=== PATIENT | male | born 1985 | race Caucasian/White ===

== ENCOUNTER 2022-12-24 21:14 | Emergency (ER) | payer OTHER, SELFPAY ==
--- NOTE | ~2022-12-24 | XR_ITS ---
EXAMINATION: XR shoulder RT min 2V INDICATION: Right shoulder pain TECHNIQUE: Four views of the right shoulder are submitted. COMPARISON: 04/22/2010 FINDINGS: Normal alignment. No fracture. There is moderate glenohumeral joint osteoarthritis. The acr omioclavicular joint is unremarkable. Soft tissues are unremarkable. IMPRESSION: 1. Osteoarthritis without acute osseous abnormality. Reviewed, dictated and finalized at location A.
--- NOTE | ~2022-12-24 | CT_ITS ---
EXAMINATION: CT cervical spine wo con DATE: 12/24/2022 23:30 INDICATION: Neck pain TECHNIQUE: Computed tomography (CT) of the cervical spine was performed without intravenous contrast. The dose-length product (DLP) was 536.95 mGy-cm. Automated exposure control and iterative reconstruc tion technique were employed. COMPARISON: None FINDINGS: No fracture, dislocation, or subluxation. The vertebral body heights, alignment, and interv ertebral disc spaces are normal. The paravertebral soft tissues are unremarkable. IMPRESSION: 1. No acute osseous abnormality. Reviewed, dictated and finalized at location A.
--- NOTE | ~2022-12-24 | CT_ITS ---
EXAMINATION: CT brain wo con INDICATION: Headache COMPARISON: 05/29/2012 TECHNIQUE: Standard unenhanced head CT. The dose-length product (DLP) was 605.33 mGy-cm. The mA was a djusted according to patient size. Iterative reconstruction technique was employed. FINDINGS: No intracranial hemorrhage, acute infarction, or abnormal mass lesion. The ventricles are n ormal. No abnormal mass effect or midline shift. The adams-white matter differentiation is normal. Cav um septum pellucidum and vergae are again noted. The basal cisterns are patent. The orbits are normal . The paranasal sinuses, mastoids and calvarium are normal. IMPRESSION: 1. No acute intracranial abnormality. Reviewed, dictated and finalized at location A.
--- NOTE | ~2022-12-24 | CT_ITS ---
EXAMINATION: CT thoracic lumbar wo con DATE: 12/25/2022 00:38 INDICATION: Back pain TECHNIQUE: Computed tomography (CT) of the thoracic and lumbar spine was performed without intravenou s contrast. The dose-length product (DLP) was 1411.33 mGy-cm. Iterative reconstruction was used. COMPARISON: None FINDINGS: Thoracic Spine: Bone alignment is normal. No fracture is identified. There is anterior and posterior fusion at T3-4. There is mild wedging of multiple lower thoracic vertebral bodies which has a chronic appearance, likely physiologic. The prevertebral soft tissues are normal. Lumbar Spine: Bone alignment is normal. No fracture is identified. Small degenerative osteophytes pro ject from the anterior endplates of multiple vertebral bodies. The vertebral body heights are maintai malou. There is mild loss of intervertebral disc space height at L3-4. Left para-aortic lymph nodes maine ear to be upper limits of normal in size. IMPRESSION: 1. No acute osseous abnormality of the thoracic spine. 2. Mild lumbar spondylosis without acute findings. 3. Left para-aortic lymph nodes are upper limits of normal in size. Reviewed, dictated and finalized at location A.
[2022-12-24 21:19] VITALS: BP 122/77; PULSE 63; RESP 16; TEMP 36.7; O2SAT 98
--- NOTE | 2022-12-24 23:23 | PC.NURSE ---
pt. requesting pain medications. ERP made aware, no further orders at this time
[2022-12-24 23:24] VITALS: BP 139/86; PULSE 55; RESP 19; O2SAT 99
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
[2022-12-25] MEDS: ACETAMINOPHEN 500 MG TABLET 1000 MG PO (00:06)
[2022-12-25] MEDS: CYCLOBENZAPRINE HCL 10 MG TABLET PO (00:06)
[2022-12-25 01:41] VITALS: BP 148/97; PULSE 58; RESP 15; O2SAT 100
[2022-12-25] MEDS: KETOROLAC 15 MG/ML VIAL (*BKC) IV PUSH (01:43)
[2022-12-25] MEDS: PROCHLORPERAZINE EDISYLATE 10 MG/2 ML VIAL IV PUSH (01:43)
[2022-12-25] MEDS: diphenhydrAMINE HCl INJ 50 MG/ML VIAL 25 MG IV PUSH (01:43)
== END 2022-12-25 02:14 | disposition home or self-care (01) ==
PROVIDERS: Emergency Provider Physician Assistant; PCP Emergency Medicine
DX: S16.1XXA Strain of muscle, fascia and tendon at neck level, initial encounter (principal); S39.012A Strain of muscle, fascia and tendon of lower back, initial encounter; M19.011 Primary osteoarthritis, right shoulder; M47.816 Spondylosis without myelopathy or radiculopathy, lumbar region; V49.40XA Driver injured in collision with unspecified motor vehicles in traffic accident, initial encounter
CPT/HCPCS: 70450; 72125; 72128; 72131; 73030; 96374; 96375; 99284; A9270; J0780; J1200; J1885

== ENCOUNTER 2023-08-02 06:11 | Day surgery (SDC) | payer OTHER, SELFPAY ==
[2023-07-05 10:35] VITALS: BMI 27.1
[2023-07-19 14:18] VITALS: BMI 27.8
[2023-08-02 07:21] VITALS: BMI 26.6
[2023-08-02 07:30] VITALS: BP 145/94; PULSE 64; RESP 18; TEMP 37.1; O2SAT 100
[2023-08-02] MEDS: LACTATED RINGERS 1,000 ML 150 ML IV CONT (07:36)
--- NOTE | 2023-08-02 07:56 | WPDANESEPPF ---
Anes - Initial Pre Proc Eval Procedure: Operation Date: 08/02/23 08:30 Proposed Procedures p Esophagogastroduodenoscopy - Javon Abebe MD s Diagnostic Colonoscopy - Javon Abebe MD Date/Time: 08/02/23 07:56 Surgeon: Jaovn Abebe MD Pre Op Diagnosis: Iron Dificient Anemia Patient Data Age: 37 Gender: M Height: 1.83 m Weight: 89.1 kg Last Vital Signs Temp 37.1 C 08/02/23 07:30 Pulse 64 08/02/23 07:30 Resp 18 08/02/23 07:30 BP 145/94 H 08/02/23 07:30 Pulse Ox 100 08/02/23 07:30 O2 Del Method Room Air 08/02/23 07:30 Allergies Allergy/AdvReac Type Severity Reaction Status Date / Time tramadol Allergy Unknown seizure Verified 08/02/23 07:20 disorder- contraindicated. citalopram AdvReac Mild Gastrointestinal Verified 08/02/23 07:20 Upset fluoxetine AdvReac Unknown Gastrointestinal Verified 08/02/23 07:20 Upset Patient hx anesthesia problems: none Family hx anesthesia problems: none Results Review: All pre-operative results and documents have been reviewed as part of the pre-operative evaluation. [facility] Past Medical History Medical History (Updated 08/02/23 @ 07:56 by Newton Dobson MD) Blood in stool Surgical History Surgical History (Updated 08/02/23 @ 07:56 by Newton Dobson MD) History of shoulder surgery Family History Family History Other Cerebrovascular accident Diabetes mellitus Social History Social History Smoking status: Never smoker Alcohol intake: never Substance use type: does not use Living arrangements: with family Spiritual care concerns: No Anes - Eval Final PreProcedure Day of Procedure 08/02/23 07:56 Patient weight: normal Heart: regular rate and rhythm Lungs: clear to auscultation Airway: Mallampati scale class II Neurological: alert and oriented Last oral intake: >/= 8 hours ASA classification: I Emergent: no Anesthetic plan: proceed Anesthesia type and monitoring: general GIVS and standard monitoring Results Review: All pre-operative results and documents have been reviewed as part of the pre-operative evaluation. Informed Consent: The patient's anesthetic plan and its attendant risks and benefits were discussed with the patient/family/POA. Questions were solicited and answers provided to the satisfaction of the patient/family/POA.
--- NOTE | 2023-08-02 08:26 | P.HP_ITS ---
History of Present Illness History of Present Illness Consent: Risks, benefits, and alternatives have been discussed and questions answered. Patient agrees to proceed with procedure. Chief complaint: Iron Dificient Anemia Narrative: Javon Tijerina is a 37 year old male referred for both colonoscopy an EGD. Patient reports infrequent bright red blood per rectum with wiping. This occurs very rarely but has happened on a few occasions. Denies specific abdominal pain. To reveal a hemoglobin as low iron indices for this reason referred for colonoscopy and EGD. Patient's family history is noncontributory per his weight has remained stable. Patient did receive an iron infusion 1 week ago. Review of Systems Review of Systems: Review of systems noncontributory. [facility] Past Medical History Medical History (Updated 08/02/23 @ 08:28 by Javon Abebe MD) Blood in stool Surgical History Surgical History (Updated 08/02/23 @ 07:56 by Newton Dobson MD) History of shoulder surgery Family History Family History Other Cerebrovascular accident Diabetes mellitus Social History Social History Smoking status: Never smoker Alcohol intake: never Substance use type: does not use Living arrangements: with family Spiritual care concerns: No Meds Home Medications and Allergies Allergies Allergy/AdvReac Type Severity Reaction Status Date / Time tramadol Allergy Unknown seizure Verified 08/02/23 07:20 disorder- contraindicated. citalopram AdvReac Mild Gastrointestinal Verified 08/02/23 07:20 Upset fluoxetine AdvReac Unknown Gastrointestinal Verified 08/02/23 07:20 Upset Vital Signs Vital Signs - 24 hr 08/02/23 07:30 Temperature 98.8 F Pulse Rate 64 Respiratory Rate 18 Blood Pressure 145/94 H Pulse Oximetry 100 Oxygen Delivery Room Air Exam Narrative: Physical exam reveals patient to be alert. Signs stable. HEENT exam is unremarkable. Patient is anicteric. Is are clear to auscultation and percussion. Heart is without murmur or extra sounds. Abdomen bowel sounds are present soft nontender with no organomegaly. Digital external rectal exam normal. Assessment and Plan Assessment and plan (1) Iron deficiency: Code(s): E61.1 - Iron deficiency Status: Acute Assessment and Plan: Patient found to have iron deficient is received an iron infusion. Colonoscopy and EGD requested to search for possible GI source will be performed further recommendations may be given after endoscopy. (2) Rectal bleeding: Code(s): K62.5 - Hemorrhage of anus and rectum Status: Acute Assessment and Plan: Patient notes very rare instances of rectal bleeding with bright red blood on wiping. Colonoscopy to be performed to evaluate more thoroughly.
[2023-08-02] MEDS: SIMETHICONE ORAL SUSPENSION 20 MG/0.3 ML 30 ML BOTTLE 0.6 ML IRRIGATION (08:57)
[2023-08-02 09:10] VITALS: BP 121/108; PULSE 79; RESP 16; O2SAT 100
[2023-08-02 09:20] VITALS: BP 123/86; PULSE 68; RESP 16; O2SAT 100
--- NOTE | 2023-08-02 09:25 | WPDANESPN ---
Anes - Prog Note Post-Op Date/Time: 08/02/23 09:25 Cardiovascular status: normal Respiratory status: normal Airway patency: baseline Mental status: baseline Post-Op hydration status: normal Vital Signs: Last Vital Signs Temp 37.1 C 08/02/23 07:30 Pulse 79 08/02/23 09:10 Resp 16 08/02/23 09:10 BP 121/108 H 08/02/23 09:10 Pulse Ox 100 08/02/23 09:10 O2 Del Method Room Air 08/02/23 09:10 Pain Score (VAS): 0/10 I/O: Intake & Output 08/01/23 08/02/23 08/02/23 23:59 07:59 15:59 Intake Total 800 Balance 800 Patient Feedback: Patient satisfied with anesthetic care.
[2023-08-02 09:30] VITALS: BP 115/93; PULSE 67; RESP 16; O2SAT 100
== END 2023-08-02 09:35 | disposition home or self-care (01) ==
PROVIDERS: PCP Emergency Medicine; Visit Provider Internal Medicine Gastroenterology
PROC: 0DJ08ZZ Inspection of Upper Intestinal Tract, Via Natural or Artificial Opening Endoscopic (ICD-10-PCS; CPT 43235; principal; 2023-08-02 08:30)
PROC: 0DJD8ZZ Inspection of Lower Intestinal Tract, Via Natural or Artificial Opening Endoscopic (ICD-10-PCS; CPT 45378; 2023-08-02 08:30)
DX: R19.4 Change in bowel habit (principal); K62.5 Hemorrhage of anus and rectum; R10.84 Generalized abdominal pain; K64.8 Other hemorrhoids; D50.9 Iron deficiency anemia, unspecified
CPT/HCPCS: 45378; 43239

== ENCOUNTER 2023-08-02 07:39 | Outpatient (NON) | payer OTHER, SELFPAY | END 2023-08-02 07:40 | disposition home or self-care (01) | PROVIDERS: PCP Emergency Medicine; Visit Provider Internal Medicine Gastroenterology | DX: E61.1 Iron deficiency (principal) | CPT/HCPCS: 88305 ==